=== PATIENT | female | born 1955 | race African-American/Black ===

== ENCOUNTER 2020-10-16 11:16 | Inpatient (IN) | payer BC, MEDICAID ==
[~2020-10-16] VITALS: Ht 157.5 cm; Wt 59.0 kg
[2020-10-16 11:59] LABS: BASOPHILS % 1.2 % (0.0-2.0); EOSINOPHILS % 2.7 % (0.0-5.0); HEMATOCRIT. 30.7 % (36.0-48.0); LYMPHOCYTES % 39.6 % (20.0-50.0); MEAN CORPUSCULAR HEMOGLOBIN 30.4 pg (28.0-32.0); MEAN CORPUSCULAR VOLUME 93.6 fL (81.0-99.0); MEAN PLATELET VOLUME 8.5 fl (7.4-10.4); MONOCYTES % 7.7 % (2.0-8.0); NEUTROPHILS % 48.8 % (40.0-76.0); PLATELET 253 x1000/uL (130-400); RED BLOOD CELL COUNT 3.28 mill/uL (4.2-5.4); RED CELL DISTRIBUTION WIDTH 14.5 % (11.6-14.6)
[2020-10-16] MEDS ORDERED: ONDANSETRON HCL 4MG/2ML INJ IV ONE (12:00)
[2020-10-16] MEDS ORDERED: MORPHINE SULFATE 4 MG/ML CPJ (NOT FOR IM USE) IV ONE (12:00)
[2020-10-16] MEDS ORDERED: SODIUM CHLORIDE 0.9% 1,000 ML IV ONE (12:00)
[2020-10-16 12:09] LABS: CHLORIDE 106 mEq/L (98-107)
[2020-10-16] MEDS ORDERED: POTASSIUM CHLORIDE 20MEQ TABLET SR PO ONE (12:15)
[2020-10-16] MEDS ORDERED: INSULIN REGULAR (HUMULIN R) 300UNITS/3ML VIAL IV ONE (13:45)
[2020-10-16] MEDS ORDERED: KCL 10MEQ/50ML PREMIX 50 ML IV ONE (14:45)
[2020-10-16] MEDS ORDERED: POTASSIUM CHLORIDE 20MEQ/PACKET PO NR (15:00)
[2020-10-16 15:12] LABS: CHLORIDE 106 mEq/L (98-107)
[2020-10-16 16:00] VITALS: BP 150/102
[2020-10-16] MEDS ORDERED: MAGNESIUM 1 G PREMIX 100 ML IV NR (16:00)
[2020-10-16 17:00] VITALS: BP 186/102
[2020-10-16] MEDS ORDERED: MORPHINE SULFATE 2 MG/ML CPJ (NOT FOR IM USE) IV PRN (17:45)
[2020-10-16] MEDS: FUROSEMIDE 40MG/4ML VIAL IVP SCH (18:09)
[2020-10-16] MEDS: ASPIRIN 81MG EC TABLET PO SCH (18:10)
[2020-10-16] MEDS: ENOXAPARIN 40MG/0.4ML SYR SUBCUT SCH (18:10)
[2020-10-16] MEDS: LOSARTAN POTASSIUM 25 MG TABLET PO SCH (18:10)
[2020-10-16] MEDS ORDERED: ALBU05 NEB (18:32)
[2020-10-16] MEDS ORDERED: ALBU05 IH (18:32)
[2020-10-16 19:51] LABS: CLARITY URINE CLEAR (CLEAR); COLOR URINE YELLOW (YELLOW); KETONES URINE NEGATIVE (NEGATIVE); LEUKOCYTE ESTERASE URINE 1+ (NEGATIVE); NITRITE URINE NEGATIVE (NEGATIVE); OCCULT BLOOD URINE NEGATIVE (NEGATIVE); PH URINE 7.5 (4.5-8.0); PROTEIN URINE NEGATIVE (NEGATIVE); SPECIFIC GRAVITY URINE 1.009 (1.005-1.030)
[2020-10-16 20:00] VITALS: BP 177/81
[2020-10-16 20:27] LABS: *AMPHETAMINES SCREEN URINE NEGATIVE (NEGATIVE); *BARBITURATES SCREEN URINE NEGATIVE (NEGATIVE); *BENZODIAZEPINES SCREEN URINE NEGATIVE (NEGATIVE); *COCAINE SCREEN URINE NEGATIVE (NEGATIVE); METHADONE URINE SCREEN NEGATIVE (NEGATIVE); OPIATES URINE SCREEN PRESUMTIVE POSITIVE (NEGATIVE)
[2020-10-16 20:28] LABS: CANNABINOID URINE SCREEN NEGATIVE (NEGATIVE); PHENCYCLIDINE URINE SCREEN NEGATIVE (NEGATIVE)
[2020-10-16] MEDS ORDERED: AMLODIPINE 5MG TABLET PO SCH (21:00)
[2020-10-16] MEDS: NITROGLYCERIN OINT 1GM/INCH UDPKT TD SCH (21:41)
[2020-10-16] MEDS: ACETAMINOPHEN 325MG TABLET PO PRN (21:42)
[2020-10-17] VITALS: BP 187/98
[2020-10-17 00:57] VITALS: BP 170/112
[2020-10-17] MEDS: CLONIDINE 0.2MG TABLET PO SCH ×4 (00:57→21:15)
[2020-10-17 04:00] VITALS: BP 175/81
[2020-10-17] MEDS: NITROGLYCERIN OINT 1GM/INCH UDPKT TD SCH ×3 (05:00→21:14)
[2020-10-17 06:30] LABS: BASOPHILS % 0.8 % (0.0-2.0); EOSINOPHILS % 3.4 % (0.0-5.0); HEMATOCRIT. 31.1 % (36.0-48.0); HEMOGLOBIN. 10.1 g/dL (12.0-16.0); LYMPHOCYTES % 49.9 % (20.0-50.0); MEAN CORPUSCULAR HEMOGLOBIN 30.5 pg (28.0-32.0); MEAN CORPUSCULAR VOLUME 94.2 fL (81.0-99.0); MEAN PLATELET VOLUME 8.8 fl (7.4-10.4); MONOCYTES % 9.6 % (2.0-8.0); NEUTROPHILS % 36.3 % (40.0-76.0); PLATELET 260 x1000/uL (130-400); RED CELL DISTRIBUTION WIDTH 14.8 % (11.6-14.6)
[2020-10-17 06:40] LABS: CHLORIDE 107 mEq/L (98-107)
[2020-10-17 06:54] LABS: T4 FREE 1.81 ng/dL (0.76-1.46); TOTAL IRON BINDING CAPACITY 245 ug/dL (250-450)
[2020-10-17 07:08] LABS: VITAMIN B12 SERUM 230 pg/mL (211-911)
[2020-10-17] MEDS: FUROSEMIDE 40MG/4ML VIAL IVP SCH (09:17)
[2020-10-17] MEDS: ASPIRIN 81MG EC TABLET PO SCH (09:18)
[2020-10-17] MEDS: AMLODIPINE 10MG TABLET PO SCH (09:18)
[2020-10-17] MEDS: LOSARTAN POTASSIUM 25 MG TABLET PO SCH (09:18)
[2020-10-17] MEDS: ENOXAPARIN 40MG/0.4ML SYR SUBCUT SCH (09:18)
[2020-10-17] MEDS ORDERED: POTASSIUM CHLORIDE 20MEQ TABLET SR PO NR (11:00)
[2020-10-17] MEDS ORDERED: TRAZ-252 PO (13:14)
[2020-10-17] MEDS ORDERED: FERR325T6 PO (13:14)
[2020-10-17] MEDS ORDERED: PROT20 PO (13:14)
[2020-10-17] MEDS ORDERED: CLAR10 PO (13:14)
[2020-10-17] MEDS ORDERED: CARV12.545 PO (13:14)
[2020-10-17] MEDS ORDERED: ALBU6.7H9 INH (13:14)
[2020-10-17] MEDS ORDERED: GABA-532 PO (13:14)
[2020-10-17] MEDS ORDERED: BUSP7.5T7 PO (13:14)
[2020-10-17] MEDS ORDERED: ACET-2708 PO (13:14)
[2020-10-17] MEDS ORDERED: LISI40TA4 PO (13:14)
[2020-10-17] MEDS ORDERED: MONT10TA21 PO (13:14)
[2020-10-17] MEDS ORDERED: NIFE90TA60 PO (13:14)
[2020-10-17] MEDS ORDERED: CLON0.3T PO (13:17)
[2020-10-17 13:46] VITALS: BP 202/98
[2020-10-17] MEDS: HYDRALAZINE HCL 25MG TABLET PO SCH ×2 (13:53→21:17)
[2020-10-17] MEDS ORDERED: HYDRALAZINE 20MG/ML VIAL IV NR (14:30)
[2020-10-17] MEDS: LOSARTAN POTASSIUM 50 MG TABLET PO SCH ×2 (15:11→20:38)
[2020-10-17] MEDS: ACETAMINOPHEN 325MG TABLET PO PRN (15:53)
[2020-10-17] MEDS: LORAZEPAM 0.5MG TABLET PO PRN ×2 (15:56→23:45)
[2020-10-17] MEDS ORDERED: LOSARTAN POTASSIUM 25 MG TABLET PO SCH (17:00)
[2020-10-17] MEDS: FERROUS SULFATE 325MG TABLET PO SCH (17:35)
[2020-10-17] MEDS: DIPHENHYDRAMINE 50MG CAPSULE PO PRN (17:36)
[2020-10-17 20:00] VITALS: BP 182/76
[2020-10-18] VITALS: BP 162/72
[2020-10-18 04:32] VITALS: BP 167/68
[2020-10-18] MEDS: HYDRALAZINE HCL 25MG TABLET PO SCH ×4 (05:03→21:33)
[2020-10-18] MEDS: NITROGLYCERIN OINT 1GM/INCH UDPKT TD SCH ×3 (05:05→21:34)
[2020-10-18] MEDS: CLONIDINE 0.2MG TABLET PO SCH ×3 (05:05→21:34)
[2020-10-18 07:20] LABS: BASOPHILS % 0.6 % (0.0-2.0); EOSINOPHILS % 3.6 % (0.0-5.0); HEMATOCRIT. 34.7 % (36.0-48.0); HEMOGLOBIN. 11.4 g/dL (12.0-16.0); LYMPHOCYTES % 23.5 % (20.0-50.0); MEAN CORPUSCULAR HEMOGLOBIN 31.1 pg (28.0-32.0); MEAN CORPUSCULAR VOLUME 94.2 fL (81.0-99.0); MEAN PLATELET VOLUME 8.1 fl (7.4-10.4); NEUTROPHILS % 64.3 % (40.0-76.0); PLATELET 298 x1000/uL (130-400); RED BLOOD CELL COUNT 3.68 mill/uL (4.2-5.4); RED CELL DISTRIBUTION WIDTH 15.2 % (11.6-14.6)
[2020-10-18 08:00] VITALS: BP 146/73
[2020-10-18 08:21] LABS: CHLORIDE 108 mEq/L (98-107)
[2020-10-18] MEDS: AMLODIPINE 10MG TABLET PO SCH (09:22)
[2020-10-18] MEDS: LOSARTAN POTASSIUM 50 MG TABLET PO SCH ×2 (09:22→21:34)
[2020-10-18] MEDS: ASPIRIN 81MG EC TABLET PO SCH (09:23)
[2020-10-18] MEDS: FERROUS SULFATE 325MG TABLET PO SCH ×3 (09:23→18:00)
[2020-10-18] MEDS: FUROSEMIDE 40MG/4ML VIAL IVP SCH (09:23)
[2020-10-18] MEDS: ENOXAPARIN 40MG/0.4ML SYR SUBCUT SCH ×2 (09:25→09:35)
[2020-10-18 12:00] VITALS: BP 136/64
[2020-10-18] MEDS ORDERED: POTASSIUM CHLORIDE 20MEQ/PACKET PO NR (14:45)
[2020-10-18] MEDS: DIPHENHYDRAMINE 50MG CAPSULE PO PRN (15:22)
[2020-10-18 16:00] VITALS: BP 136/60
[2020-10-18] MEDS: LORAZEPAM 0.5MG TABLET PO PRN (18:34)
[2020-10-18 20:00] VITALS: BP 123/57
[2020-10-18] MEDS: CARVEDILOL 3.125 MG TABLET PO SCH (21:34)
[2020-10-19] VITALS: BP 118/50
[2020-10-19 04:00] VITALS: BP 105/80
[2020-10-19] MEDS: CLONIDINE 0.2MG TABLET PO SCH ×3 (05:50→21:11)
[2020-10-19] MEDS: HYDRALAZINE HCL 25MG TABLET PO SCH ×3 (05:50→21:11)
[2020-10-19] MEDS: NITROGLYCERIN OINT 1GM/INCH UDPKT TD SCH ×3 (05:51→21:11)
[2020-10-19 07:15] LABS: BASOPHILS % 0.8 % (0.0-2.0); EOSINOPHILS % 4.7 % (0.0-5.0); HEMATOCRIT. 34.9 % (36.0-48.0); HEMOGLOBIN. 11.6 g/dL (12.0-16.0); LYMPHOCYTES % 37.4 % (20.0-50.0); MEAN CORPUSCULAR HEMOGLOBIN 31.4 pg (28.0-32.0); MEAN CORPUSCULAR VOLUME 94.7 fL (81.0-99.0); MEAN PLATELET VOLUME 7.7 fl (7.4-10.4); MONOCYTES % 11.2 % (2.0-8.0); NEUTROPHILS % 45.9 % (40.0-76.0); PLATELET 329 x1000/uL (130-400); RED BLOOD CELL COUNT 3.69 mill/uL (4.2-5.4); RED CELL DISTRIBUTION WIDTH 15.3 % (11.6-14.6)
[2020-10-19 07:27] LABS: CHLORIDE 111 mEq/L (98-107)
[2020-10-19 08:50] VITALS: BP 159/80
[2020-10-19] MEDS: ASPIRIN 81MG EC TABLET PO SCH (09:28)
[2020-10-19] MEDS: CARVEDILOL 3.125 MG TABLET PO SCH ×2 (09:28→21:11)
[2020-10-19] MEDS: FERROUS SULFATE 325MG TABLET PO SCH ×3 (09:28→17:15)
[2020-10-19] MEDS: LOSARTAN POTASSIUM 50 MG TABLET PO SCH ×2 (09:28→21:11)
[2020-10-19] MEDS: AMLODIPINE 10MG TABLET PO SCH (09:28)
[2020-10-19] MEDS: FUROSEMIDE 40MG/4ML VIAL IVP SCH (09:28)
[2020-10-19 12:53] VITALS: BP 148/74
[2020-10-19 16:00] VITALS: BP 149/68
[2020-10-19] MEDS: ACETAMINOPHEN 325MG TABLET PO PRN (17:16)
[2020-10-19] MEDS: DIPHENHYDRAMINE 50MG CAPSULE PO PRN (18:18)
[2020-10-19 20:00] VITALS: BP 120/54
[2020-10-20] VITALS: BP_SYST 110; BP_SYST 135; BP_DIAS 46; BP_DIAS 62
[2020-10-20] MEDS: ACETAMINOPHEN 325MG TABLET PO PRN ×2 (01:00→08:03)
[2020-10-20] MEDS: NITROGLYCERIN OINT 1GM/INCH UDPKT TD SCH ×2 (06:00→14:52)
[2020-10-20] MEDS: CLONIDINE 0.2MG TABLET PO SCH ×2 (06:00→14:52)
[2020-10-20] MEDS: HYDRALAZINE HCL 25MG TABLET PO SCH ×2 (06:00→14:52)
[2020-10-20 06:21] LABS: CHLORIDE 109 mEq/L (98-107)
[2020-10-20 06:22] LABS: BASOPHILS % 1.2 % (0.0-2.0); EOSINOPHILS % 5.7 % (0.0-5.0); HEMATOCRIT. 34.4 % (36.0-48.0); HEMOGLOBIN. 11.3 g/dL (12.0-16.0); LYMPHOCYTES % 49.4 % (20.0-50.0); MEAN CORPUSCULAR VOLUME 94.8 fL (81.0-99.0); MEAN PLATELET VOLUME 8.1 fl (7.4-10.4); MONOCYTES % 14.7 % (2.0-8.0); PLATELET 308 x1000/uL (130-400); RED BLOOD CELL COUNT 3.63 mill/uL (4.2-5.4); RED CELL DISTRIBUTION WIDTH 15.4 % (11.6-14.6)
[2020-10-20 07:59] VITALS: BP 171/65
[2020-10-20] MEDS: LOSARTAN POTASSIUM 50 MG TABLET PO SCH (08:00)
[2020-10-20] MEDS: CARVEDILOL 3.125 MG TABLET PO SCH (08:00)
[2020-10-20] MEDS: ENOXAPARIN 40MG/0.4ML SYR SUBCUT SCH (08:01)
[2020-10-20] MEDS: FERROUS SULFATE 325MG TABLET PO SCH ×2 (08:01→14:52)
[2020-10-20] MEDS: AMLODIPINE 10MG TABLET PO SCH (08:01)
[2020-10-20] MEDS: ASPIRIN 81MG EC TABLET PO SCH (08:02)
[2020-10-20] MEDS: FUROSEMIDE 40MG/4ML VIAL IVP SCH (09:02)
[2020-10-20] MEDS ORDERED: FURO-151 MT (13:44)
[2020-10-20 14:00] VITALS: BP 216/95
[2020-10-20 15:52] VITALS: BP 18/162
[2020-10-20 16:26] VITALS: BP 162/84
== END 2020-10-20 16:50 | disposition home or self-care (01) | DRG 280 ==
LOC: ER 11:16 → 8WST 13:05 → EDBEDREQTM 14:21 → EDBEDREQ 14:21 → ENRESERV 14:58 → 6WST 10-17 12:41
PROVIDERS: ADMIT Family Medicine Adult Medicine; ATTEND Family Medicine Adult Medicine
DX: I21.4 Non-ST elevation (NSTEMI) myocardial infarction (principal); I50.43 Acute on chronic combined systolic (congestive) and diastolic (congestive) heart failure; I16.1 Hypertensive emergency; E44.0 Moderate protein-calorie malnutrition; I42.9 Cardiomyopathy, unspecified; I11.0 Hypertensive heart disease with heart failure; E05.90 Thyrotoxicosis, unspecified without thyrotoxic crisis or storm; E87.6 Hypokalemia; E83.42 Hypomagnesemia; J44.9 Chronic obstructive pulmonary disease, unspecified; I34.0 Nonrheumatic mitral (valve) insufficiency; D50.9 Iron deficiency anemia, unspecified; I27.20 Pulmonary hypertension, unspecified; Z20.822 Contact with and (suspected) exposure to COVID-19; Z79.899 Other long term (current) drug therapy; Z90.710 Acquired absence of both cervix and uterus; Z86.73 Personal history of transient ischemic attack (TIA), and cerebral infarction without residual deficits; Z68.23 Body mass index [BMI] 23.0-23.9, adult; Z90.49 Acquired absence of other specified parts of digestive tract
CPT/HCPCS: 36415; 71045; 74176; 80048; 80053; 80305; 81003; 82607; 82962; 83540; 83550; 83735; 83880; 84145; 84439; 84443; 84481; 84484; 85025; 85044; 87426; 93005; 93306; 96374; 97116; 97162; 99291; J0360; J1650; J1940; J2270; J2405; J3475; J3480; J7030; Q0163

== ENCOUNTER 2021-07-17 16:20 | Inpatient (IN) | payer MEDICARE, MEDICAID ==
[~2021-07-17] VITALS: Ht 157.5 cm; Wt 47.6 kg
[~2021-07-17 16:20] MED LIST: ACET-2708 PO; ALBU6.7H9 INH; BUSP7.5T7 PO; CARV12.545 PO; CLAR10 PO; CLON0.3T PO; FERR325T6 PO; FURO-151 MT; GABA-532 PO; LISI40TA13 PO; MONT10TA21 PO; NIFE90TA60 PO; PROT20 PO; TRAZ-252 PO
[2021-07-17] MEDS ORDERED: ONDANSETRON HCL 4MG/2ML INJ IV STA (19:17)
[2021-07-17] MEDS ORDERED: MORPHINE SULFATE 4 MG/ML CPJ (NOT FOR IM USE) IV STA (19:17)
[2021-07-17] MEDS ORDERED: SODIUM CHLORIDE 0.9% 1,000 ML IV ONE (19:30)
[2021-07-17 19:53] LABS: BASOPHILS % 0.9 % (0.0-2.0); EOSINOPHILS % 1.5 % (0.0-5.0); HEMATOCRIT. 39.2 % (36.0-48.0); HEMOGLOBIN. 12.7 g/dL (12.0-16.0); LYMPHOCYTES % 39.4 % (20.0-50.0); MEAN CORPUSCULAR HEMOGLOBIN 30.5 pg (28.0-32.0); MEAN CORPUSCULAR VOLUME 93.7 fL (81.0-99.0); MEAN PLATELET VOLUME 7.4 fl (7.4-10.4); MONOCYTES % 6.1 % (2.0-8.0); NEUTROPHILS % 52.1 % (40.0-76.0); PLATELET 327 x1000/uL (130-400); RED BLOOD CELL COUNT 4.18 mill/uL (4.2-5.4); RED CELL DISTRIBUTION WIDTH 13.7 % (11.6-14.6)
[2021-07-17 20:00] LABS: CHLORIDE 103 mEq/L (98-107)
[2021-07-17 20:02] LABS: PARTIAL THROMBOPLASTIN TIME 24.4 sec (23.4-31.0); PROTHROMBIN TIME 10.9 sec (9.6-11.0)
[2021-07-17] MEDS ORDERED: MORPHINE SULFATE 2 MG/ML CPJ (NOT FOR IM USE) IV NR (22:45)
[2021-07-18] MEDS ORDERED: ASPIRIN 81MG TABLET PO ONE
[2021-07-18 03:45] LABS: CLARITY URINE CLOUDY (CLEAR); COLOR URINE DARK YELLOW (YELLOW); KETONES URINE TRACE (NEGATIVE); LEUKOCYTE ESTERASE URINE 2+ (NEGATIVE); NITRITE URINE NEGATIVE (NEGATIVE); OCCULT BLOOD URINE NEGATIVE (NEGATIVE); PROTEIN URINE 2+ (NEGATIVE); SPECIFIC GRAVITY URINE 1.026 (1.005-1.030)
[2021-07-18 08:39] VITALS: BP 180/94
[2021-07-18] MEDS: HYDROCODONE/ACETAMINOPHEN 5/325MG TABLET PO PRN (11:30)
[2021-07-18 12:00] VITALS: BP 127/86
[2021-07-18] MEDS ORDERED: INFLUENZA VACCINE 05/PF 0.5 ML SYRINGE IM ONE (12:00)
[2021-07-18 16:00] VITALS: BP 152/111
[2021-07-18] MEDS ORDERED: MAGNESIUM/ALUMINUM HYDROXIDE/SIMETHICONE 30ML UDC PO PRN (16:00)
[2021-07-18] MEDS ORDERED: ONDANSETRON HCL 4MG/2ML INJ IV PRN (16:00)
[2021-07-18] MEDS ORDERED: ENOXAPARIN 30MG/0.3ML SYR SUBCUT SCH (16:00)
[2021-07-18] MEDS ORDERED: IPRATROPIUM/ALBUTEROL 0.5-3(2.5)MG/3ML NEB HHN PRN (16:00)
[2021-07-18] MEDS ORDERED: ENOXAPARIN 40MG/0.4ML SYR SUBCUT SCH (16:00)
[2021-07-18] MEDS ORDERED: LOSARTAN POTASSIUM 25 MG TABLET PO SCH (16:15)
[2021-07-18] MEDS ORDERED: NALOXONE HCL 0.4MG/ML VIAL IV PRN (16:15)
[2021-07-18] MEDS: TRAMADOL 50MG TABLET PO PRN (17:50)
[2021-07-18] MEDS: CLONIDINE 0.1MG TABLET PO PRN (17:50)
[2021-07-18] MEDS: LIDOCAINE 5% PATCH TOP SCH (17:52)
[2021-07-18 20:00] VITALS: BP 129/89
[2021-07-18] MEDS: CARVEDILOL 3.125 MG TABLET PO SCH (21:06)
[2021-07-18] MEDS ORDERED: MORPHINE SULFATE 2 MG/ML CPJ (NOT FOR IM USE) IV NR (22:45)
[2021-07-18] MEDS: THIAMINE HCL 100MG TABLET PO SCH (22:55)
[2021-07-19] VITALS: BP 129/82
[2021-07-19 02:07] LABS: CREATINE KINASE MB FRACTION 4.5 ng/mL (0.5-3.6)
[2021-07-19] MEDS: HYDROCODONE/ACETAMINOPHEN 5/325MG TABLET PO PRN ×3 (03:43→22:11)
[2021-07-19 04:00] VITALS: BP 89/52
[2021-07-19 08:00] VITALS: BP 144/106
[2021-07-19 08:52] LABS: BASOPHILS % 0.5 % (0.0-2.0); EOSINOPHILS % 2.3 % (0.0-5.0); HEMATOCRIT. 39.5 % (36.0-48.0); LYMPHOCYTES % 35.9 % (20.0-50.0); MEAN CORPUSCULAR HEMOGLOBIN 30.6 pg (28.0-32.0); MEAN CORPUSCULAR VOLUME 93.1 fL (81.0-99.0); MEAN PLATELET VOLUME 7.7 fl (7.4-10.4); MONOCYTES % 6.9 % (2.0-8.0); NEUTROPHILS % 54.4 % (40.0-76.0); PLATELET 337 x1000/uL (130-400); RED BLOOD CELL COUNT 4.24 mill/uL (4.2-5.4); RED CELL DISTRIBUTION WIDTH 13.7 % (11.6-14.6)
[2021-07-19] MEDS: THIAMINE HCL 100MG TABLET PO SCH (08:57)
[2021-07-19] MEDS: CARVEDILOL 3.125 MG TABLET PO SCH ×2 (08:57→22:07)
[2021-07-19] MEDS: TRAMADOL 50MG TABLET PO PRN (08:59)
[2021-07-19] MEDS ORDERED: FUROSEMIDE 40MG/4ML VIAL IVP SCH (09:00)
[2021-07-19 09:15] LABS: CHLORIDE 102 mEq/L (98-107)
[2021-07-19 09:32] LABS: CREATINE KINASE MB FRACTION 4.9 ng/mL (0.5-3.6)
[2021-07-19 09:38] LABS: PHOSPHORUS 3.7 mg/dL (2.5-4.9)
[2021-07-19 09:39] LABS: LDL CHOLESTEROL 83 mg/dL (5-100)
[2021-07-19 09:41] LABS: HDL CHOLESTEROL 66 mg/dL (40-59); T4 FREE 1.14 ng/dL (0.76-1.46)
[2021-07-19 12:00] VITALS: BP 160/88
[2021-07-19 12:08] LABS: VITAMIN B12 SERUM 227 pg/mL (211-911)
[2021-07-19 13:23] LABS: *AMPHETAMINES SCREEN URINE NEGATIVE (NEGATIVE); *BARBITURATES SCREEN URINE NEGATIVE (NEGATIVE); *BENZODIAZEPINES SCREEN URINE NEGATIVE (NEGATIVE); *COCAINE SCREEN URINE NEGATIVE (NEGATIVE); METHADONE URINE SCREEN NEGATIVE (NEGATIVE); OPIATES URINE SCREEN PRESUMTIVE POSITIVE (NEGATIVE); PHENCYCLIDINE URINE SCREEN NEGATIVE (NEGATIVE)
[2021-07-19 13:24] LABS: CANNABINOID URINE SCREEN NEGATIVE (NEGATIVE)
[2021-07-19 15:58] LABS: CREATINE KINASE MB FRACTION 6.6 ng/mL (0.5-3.6)
[2021-07-19 16:00] VITALS: BP 142/83
[2021-07-19] MEDS: ENOXAPARIN 40MG/0.4ML SYR SUBCUT SCH (17:26)
[2021-07-19] MEDS: LIDOCAINE 5% PATCH TOP SCH (17:28)
[2021-07-19 20:00] VITALS: BP_SYST 169; BP_SYST 194; BP_DIAS 114; BP_DIAS 127
[2021-07-19] MEDS: ACETAMINOPHEN 325MG TABLET PO PRN (22:06)
[2021-07-19] MEDS: CLONIDINE 0.1MG TABLET PO PRN (22:14)
[2021-07-20] VITALS (7 sets, daily range): BP systolic 116–162; BP diastolic 64–115
[2021-07-20] MEDS: HYDROCODONE/ACETAMINOPHEN 5/325MG TABLET PO PRN ×4 (05:40→22:35)
[2021-07-20 07:31] LABS: BASOPHILS % 0.6 % (0.0-2.0); EOSINOPHILS % 1.9 % (0.0-5.0); HEMOGLOBIN. 14.6 g/dL (12.0-16.0); LYMPHOCYTES % 51.7 % (20.0-50.0); MEAN CORPUSCULAR HEMOGLOBIN 30.8 pg (28.0-32.0); MEAN CORPUSCULAR VOLUME 92.8 fL (81.0-99.0); MEAN PLATELET VOLUME 7.6 fl (7.4-10.4); MONOCYTES % 8.1 % (2.0-8.0); NEUTROPHILS % 37.7 % (40.0-76.0); PLATELET 335 x1000/uL (130-400); RED BLOOD CELL COUNT 4.75 mill/uL (4.2-5.4); RED CELL DISTRIBUTION WIDTH 13.6 % (11.6-14.6)
[2021-07-20 07:53] LABS: CHLORIDE 101 mEq/L (98-107)
[2021-07-20 07:59] LABS: PHOSPHORUS 4.7 mg/dL (2.5-4.9)
[2021-07-20] MEDS ORDERED: POTASSIUM CHLORIDE 20MEQ/PACKET PO NR (08:15)
[2021-07-20] MEDS: LIDOCAINE 5% PATCH TOP SCH (08:36)
[2021-07-20] MEDS: TRAMADOL 50MG TABLET PO PRN (08:36)
[2021-07-20] MEDS: THIAMINE HCL 100MG TABLET PO SCH (08:37)
[2021-07-20] MEDS: QUETIAPINE FUMARATE 25MG TABLET PO SCH ×2 (08:37→22:27)
[2021-07-20] MEDS: CARVEDILOL 3.125 MG TABLET PO SCH (08:37)
[2021-07-20] MEDS ORDERED: MAGNESIUM/ALUMINUM HYDROXIDE/SIMETHICONE 30ML UDC PO PRN (14:30)
[2021-07-20] MEDS: PANTOPRAZOLE SODIUM 40 MG/VIAL IV SCH (14:53)
[2021-07-20] MEDS: ENOXAPARIN 40MG/0.4ML SYR SUBCUT SCH (16:10)
[2021-07-20] MEDS ORDERED: ASPIRIN 81MG TABLET PO SCH (17:00)
[2021-07-20] MEDS ORDERED: LORAZEPAM 2MG/ML CPJ IV NR (18:30)
[2021-07-20] MEDS: ATORVASTATIN CALCIUM 40MG TABLET PO SCH (22:25)
[2021-07-20] MEDS: CARVEDILOL 6.25 MG TABLET PO SCH (22:26)
[2021-07-20] MEDS: TRAZODONE HCL 50MG TABLET PO SCH (22:27)
[2021-07-21] MEDS: ACETAMINOPHEN 325MG TABLET PO PRN (01:37)
[2021-07-21] MEDS: TRAMADOL 50MG TABLET PO PRN (01:39)
[2021-07-21 04:00] VITALS: BP 137/69
[2021-07-21] MEDS: HYDROCODONE/ACETAMINOPHEN 5/325MG TABLET PO PRN ×2 (06:54→22:10)
[2021-07-21 07:33] LABS: BASOPHILS % 0.9 % (0.0-2.0); EOSINOPHILS % 1.4 % (0.0-5.0); HEMATOCRIT. 42.8 % (36.0-48.0); HEMOGLOBIN. 14.2 g/dL (12.0-16.0); LYMPHOCYTES % 36.3 % (20.0-50.0); MEAN CORPUSCULAR HEMOGLOBIN 30.6 pg (28.0-32.0); MEAN CORPUSCULAR VOLUME 92.4 fL (81.0-99.0); MEAN PLATELET VOLUME 7.5 fl (7.4-10.4); MONOCYTES % 6.6 % (2.0-8.0); NEUTROPHILS % 54.8 % (40.0-76.0); PLATELET 329 x1000/uL (130-400); RED BLOOD CELL COUNT 4.63 mill/uL (4.2-5.4); RED CELL DISTRIBUTION WIDTH 13.9 % (11.6-14.6)
[2021-07-21 08:00] VITALS: BP 157/88
[2021-07-21] MEDS ORDERED: LOSARTAN POTASSIUM 50 MG TABLET PO SCH (09:00)
[2021-07-21] MEDS: PANTOPRAZOLE SODIUM 40 MG/VIAL IV SCH (09:11)
[2021-07-21] MEDS: LIDOCAINE 5% PATCH TOP SCH (09:11)
[2021-07-21] MEDS: CARVEDILOL 6.25 MG TABLET PO SCH ×2 (09:12→22:11)
[2021-07-21] MEDS: THIAMINE HCL 100MG TABLET PO SCH (09:12)
[2021-07-21] MEDS: QUETIAPINE FUMARATE 25MG TABLET PO SCH ×2 (09:12→21:50)
[2021-07-21] MEDS: CLOPIDOGREL 75MG TABLET PO SCH (09:12)
[2021-07-21 12:00] VITALS: BP 154/81
[2021-07-21 16:00] VITALS: BP 136/78
[2021-07-21] MEDS: ENOXAPARIN 40MG/0.4ML SYR SUBCUT SCH (16:00)
[2021-07-21 20:00] VITALS: BP 106/53
[2021-07-21] MEDS: TRAZODONE HCL 50MG TABLET PO SCH (21:50)
[2021-07-21] MEDS: ATORVASTATIN CALCIUM 40MG TABLET PO SCH (22:13)
[2021-07-22] VITALS: BP 115/66
[2021-07-22 04:55] VITALS: BP 129/84
[2021-07-22] MEDS: TRAMADOL 50MG TABLET PO PRN (04:58)
[2021-07-22] MEDS: HYDROCODONE/ACETAMINOPHEN 5/325MG TABLET PO PRN ×2 (05:38→21:18)
[2021-07-22 08:00] VITALS: BP 125/80
[2021-07-22 09:23] LABS: HEMATOCRIT. 43.8 % (36.0-48.0); HEMOGLOBIN. 13.9 g/dL (12.0-16.0); MEAN CORPUSCULAR VOLUME 94.5 fL (81.0-99.0); MEAN PLATELET VOLUME 8.1 fl (7.4-10.4); PLATELET 336 x1000/uL (130-400); RED BLOOD CELL COUNT 4.63 mill/uL (4.2-5.4); RED CELL DISTRIBUTION WIDTH 14.6 % (11.6-14.6)
[2021-07-22] MEDS: QUETIAPINE FUMARATE 25MG TABLET PO SCH ×2 (09:37→21:17)
[2021-07-22] MEDS: CLOPIDOGREL 75MG TABLET PO SCH (09:37)
[2021-07-22] MEDS: THIAMINE HCL 100MG TABLET PO SCH (09:38)
[2021-07-22] MEDS: LIDOCAINE 5% PATCH TOP SCH (09:38)
[2021-07-22] MEDS: PANTOPRAZOLE SODIUM 40 MG/VIAL IV SCH (09:38)
[2021-07-22] MEDS: CARVEDILOL 6.25 MG TABLET PO SCH ×2 (09:38→21:30)
[2021-07-22 12:00] VITALS: BP 138/83
[2021-07-22] MEDS ORDERED: ONDANSETRON HCL 4MG/2ML INJ IV PRN (12:00)
[2021-07-22] MEDS ORDERED: BISACODYL 10MG SUPP PR PRN (12:00)
[2021-07-22] MEDS ORDERED: MORPHINE SULFATE 2 MG/ML CPJ (NOT FOR IM USE) IV PRN (12:00)
[2021-07-22] MEDS ORDERED: LACTULOSE 20G/30ML UDC PO PRN (12:00)
[2021-07-22 12:46] LABS: BG BASE EXCESS -9.1 mmol/L (-2.0-2.0); BG CARBOXYHEMOGLOBIN 1.1 % (0.5-1.5); BG DEOXYHEMOGLOBIN 3.4 % (0.0-5.0); BG FRACTION INSPIRED OXYGEN 21; BG HCO3 ACT 15.3 mmol/L (22.0-26.0); BG METHEMOGLOBIN 0.2 % (0.0-1.5); BG OXYGEN SATURATION 96.6 % (92.0-98.5); BG OXYHEMOGLOBIN 95.3 % (94.0-97.0); BG PCO2 29.7 mmHg (35.0-45.0); BG PO2 92.3 mmHg (75.0-100.0); BG SAMPLE SITE LEFT RADIAL; BG TOTAL HEMOGLOBIN 14.9 g/dL (12.0-18.0); BG VENT MODE ROOM AIR
[2021-07-22] MEDS: LORAZEPAM 2MG/ML CPJ IV PRN ×2 (12:50→21:17)
[2021-07-22] MEDS: PIPERACILLIN/TAZOBACTAM 3.375 G in DEXTROSE 5% WATER 50 ML IV SCH ×2 (15:15→22:00)
[2021-07-22] MEDS: ENOXAPARIN 40MG/0.4ML SYR SUBCUT SCH (15:17)
[2021-07-22 15:25] LABS: BASOPHILS % 0.1 % (0.0-2.0); HEMATOCRIT. 42.6 % (36.0-48.0); HEMOGLOBIN. 13.6 g/dL (12.0-16.0); LYMPHOCYTES % 7.8 % (20.0-50.0); MEAN CORPUSCULAR HEMOGLOBIN 29.7 pg (28.0-32.0); MEAN CORPUSCULAR VOLUME 92.9 fL (81.0-99.0); MEAN PLATELET VOLUME 7.9 fl (7.4-10.4); MONOCYTES % 6.3 % (2.0-8.0); NEUTROPHILS % 85.8 % (40.0-76.0); PLATELET 353 x1000/uL (130-400); RED BLOOD CELL COUNT 4.59 mill/uL (4.2-5.4); RED CELL DISTRIBUTION WIDTH 14.3 % (11.6-14.6)
[2021-07-22 16:00] VITALS: BP 134/82
[2021-07-22 16:40] LABS: PLATELET ESTIMATE NORMAL
[2021-07-22 20:30] VITALS: BP 150/90
[2021-07-22] MEDS: TRAZODONE HCL 50MG TABLET PO SCH (21:00)
[2021-07-22] MEDS: ATORVASTATIN CALCIUM 40MG TABLET PO SCH (21:17)
[2021-07-22] MEDS ORDERED: DEXTROSE 50% WATER 50ML SYRINGE IV ONE (22:48)
[2021-07-22 22:49] LABS: CREATINE KINASE MB FRACTION 10.4 ng/mL (0.5-3.6)
[2021-07-23] MEDS ORDERED: ENOXAPARIN 30MG/0.3ML SYR SUBCUT SCH (16:00)
== END 2021-07-22 23:06 | DRG 64 ==
LOC: ER 16:20 → MICUSO 07-18 06:34 → 6WST 07-18 10:34
PROVIDERS: ADMIT Internal Medicine; ATTEND Internal Medicine
PROC: 0BH17EZ Insertion of Endotracheal Airway into Trachea, Via Natural or Artificial Opening (ICD-10-PCS; principal; 2021-07-22)
PROC: 5A12012 Performance of Cardiac Output, Single, Manual (ICD-10-PCS; 2021-07-22)
DX: I63.9 Cerebral infarction, unspecified (principal); N17.0 Acute kidney failure with tubular necrosis; E44.0 Moderate protein-calorie malnutrition; I42.9 Cardiomyopathy, unspecified; F33.0 Major depressive disorder, recurrent, mild; N39.0 Urinary tract infection, site not specified; Z68.1 Body mass index [BMI] 19.9 or less, adult; G93.40 Encephalopathy, unspecified; G81.94 Hemiplegia, unspecified affecting left nondominant side; M62.82 Rhabdomyolysis; I50.22 Chronic systolic (congestive) heart failure; G25.9 Extrapyramidal and movement disorder, unspecified; J44.1 Chronic obstructive pulmonary disease with (acute) exacerbation; S09.90XA Unspecified injury of head, initial encounter; I11.0 Hypertensive heart disease with heart failure; F41.9 Anxiety disorder, unspecified; I27.21 Secondary pulmonary arterial hypertension; F51.04 Psychophysiologic insomnia; M48.02 Spinal stenosis, cervical region; F17.210 Nicotine dependence, cigarettes, uncomplicated; N28.1 Cyst of kidney, acquired; N20.0 Calculus of kidney; G93.89 Other specified disorders of brain; G31.9 Degenerative disease of nervous system, unspecified; G89.4 Chronic pain syndrome; Z60.2 Problems related to living alone; F10.10 Alcohol abuse, uncomplicated; Y90.9 Presence of alcohol in blood, level not specified; R10.9 Unspecified abdominal pain; E03.9 Hypothyroidism, unspecified; E87.5 Hyperkalemia; Z20.822 Contact with and (suspected) exposure to COVID-19; M79.605 Pain in left leg; M79.604 Pain in right leg; W18.39XA Other fall on same level, initial encounter; Y93.89 Activity, other specified; Y92.098 Other place in other non-institutional residence as the place of occurrence of the external cause; Y99.8 Other external cause status; Z86.73 Personal history of transient ischemic attack (TIA), and cerebral infarction without residual deficits; I25.2 Old myocardial infarction; Z91.19 Patient's noncompliance with other medical treatment and regimen; Z90.710 Acquired absence of both cervix and uterus; Z90.49 Acquired absence of other specified parts of digestive tract; Z79.899 Other long term (current) drug therapy; Z71.6 Tobacco abuse counseling
CPT/HCPCS: 36415; 36600; 70551; 71045; 72100; 72141; 73030; 73521; 73610; 74176; 76770; 80048; 80053; 80061; 80076; 80305; 80320; 81003; 82140; 82375; 82550; 82553; 82607; 82805; 82962; 83036; 83735; 83880; 84100; 84145; 84439; 84443; 84484; 85025; 87426; 90686; 92950; 93005; 93306; 93880; 93970; 97162; 97166; 99285; C9113; J1650; J1940; J2060; J2270; J2405; J2543; J7030; J7060